=== PATIENT | female | born 1950 | race Caucasian/White ===

== ENCOUNTER 2017-09-24 12:27 | Emergency (ER) | payer BC ==
[2017-09-24] MEDS ORDERED: Acetaminophen 500 MG TAB ONE (14:13)
--- NOTE | 2017-09-24 14:33 | RAD ---
3 VIEWS RIGHT ANKLE: Date: 09/24/17 HISTORY: Twisting injury. FINDINGS: AP, lateral, and oblique views of right ankle obtained. There is widening of the fibulotibial joint concerning for interosseous ligamentous injury. There is a fracture in the posterior aspect of the medial distal tibia. Medial ankle soft tissue swelling compatible with ligamentous injury is also present. IMPRESSION: Posterior distal right tibial fracture. POS: [facility]
[2017-09-24] MEDS ORDERED: Bacitracin Zinc 1 Packet ONE (14:56)
== END 2017-09-24 15:48 | disposition home or self-care (01) ==
LOC: ERS 12:27
DX: S82.51XA Displaced fracture of medial malleolus of right tibia, initial encounter for closed fracture (principal); E78.5 Hyperlipidemia, unspecified; I10 Essential (primary) hypertension; Z79.899 Other long term (current) drug therapy; Z79.82 Long term (current) use of aspirin; X50.1XXA Overexertion from prolonged static or awkward postures, initial encounter
CPT/HCPCS: 29515